=== PATIENT | female | born 1965 | race Caucasian/White ===

== ENCOUNTER 2020-12-24 19:13 | Emergency (ER) | payer OTHER ==
[~2020-12-24] VITALS: Ht 170.2 cm; Wt 69.1 kg
[~2020-12-24 19:13] MED LIST: CHOL10003 PO; LEVO5TAB29 PO; MAGN400C PO; MELA1TAB22 PO; MOME17SP NAS; RANI-467 PO; SERT100T PO
[2020-12-24 19:16] VITALS: BP 117/73
[2020-12-24] MEDS ORDERED: DIPH,PERTUSS(ACELL),TET VAC/PF 0.5 ML IM-VACC ONE ×2 (20:09→20:30)
[2020-12-24] MEDS ORDERED: LIDOCAINE-MPF 1%, 5ML ONE (20:09)
[2020-12-24] MEDS ORDERED: LIDOCAINE-MPF 1%, 5ML INFIL ONE (20:30)
[2020-12-24] MEDS ORDERED: NEOSPORIN OINT. PKT 1 PACKET ONE (20:47)
== END 2020-12-24 21:04 | disposition home or self-care (01) ==
LOC: ED 19:58
DX: S61.210A Laceration without foreign body of right index finger without damage to nail, initial encounter (principal); X58.XXXA Exposure to other specified factors, initial encounter; Y93.89 Activity, other specified; Y92.009 Unspecified place in unspecified non-institutional (private) residence as the place of occurrence of the external cause; Y99.8 Other external cause status
CPT/HCPCS: 12041; 90471; 90715